=== PATIENT | male | born 1990 | race African-American/Black ===

== ENCOUNTER 2016-09-10 18:01 | Emergency (ER) | payer SELFPAY | END 2016-09-10 21:41 | disposition home or self-care (01) | LOC: D.ER 18:01 | DX: J20.9 Acute bronchitis, unspecified (principal); L40.9 Psoriasis, unspecified ==

== ENCOUNTER 2018-04-09 01:43 | Emergency (ER) | payer SELFPAY ==
[~2018-04-09] VITALS: Ht 175.3 cm; Wt 140.6 kg
[2018-04-09 01:50] VITALS: Ht 175.3 cm; Wt 140.6 kg
[2018-04-09] MEDS ORDERED: PREDNISONE20 MG PO (02:08)
[2018-04-09] MEDS ORDERED: FLUTICASONE PRO16 GM NASAL (02:09)
[2018-04-09 02:51] VITALS: BP 148/81
== END 2018-04-09 02:52 | disposition home or self-care (01) ==
LOC: D.ER 01:43
DX: J01.90 Acute sinusitis, unspecified (principal); R09.89 Other specified symptoms and signs involving the circulatory and respiratory systems

== ENCOUNTER 2018-12-09 17:46 | Emergency (ER) | payer OTHER ==
[~2018-12-09] VITALS: Ht 175.3 cm; Wt 130.9 kg
[~2018-12-09 17:46] MED LIST: FLUTICASONE PRO16 GM NASAL; PREDNISONE20 MG PO
[2018-12-09 18:08] VITALS: Ht 175.3 cm; Wt 130.9 kg
[2018-12-09] MEDS ORDERED: MEDROL DOSE PACK4 MG PO (20:04)
[2018-12-09] MEDS ORDERED: VIBRAMYCIN 100100 MG PO (20:04)
[2018-12-09 20:18] VITALS: BP 148/79
== END 2018-12-09 20:18 | disposition home or self-care (01) ==
LOC: D.ER 17:46
DX: J02.9 Acute pharyngitis, unspecified (principal)

== ENCOUNTER 2020-04-04 22:29 | Emergency (ER) | payer SELFPAY ==
[~2020-04-04] VITALS: Ht 175.3 cm; Wt 136.4 kg
[~2020-04-04 22:29] MED LIST changes: +MEDROL DOSE PACK4 MG PO; +VIBRAMYCIN 100100 MG PO
[2020-04-04 22:40] VITALS: Ht 175.3 cm; Wt 136.4 kg
[2020-04-04] MEDS ORDERED: AQUAPHOR HEALIN50 GM TOPICAL (23:32)
[2020-04-04] MEDS ORDERED: KEFLEX500 MG PO (23:32)
[2020-04-04 23:41] VITALS: BP 149/98
== END 2020-04-04 23:42 | disposition home or self-care (01) ==
LOC: D.ER 22:29
DX: L03.115 Cellulitis of right lower limb (principal); I10 Essential (primary) hypertension; M79.672 Pain in left foot